=== PATIENT | female | born 1950 | race Caucasian/White ===

== ENCOUNTER 2016-12-16 08:32 | Inpatient (IN) | payer MEDICARE ==
[2016-12-15 11:04] VITALS: BMI 34.5
--- NOTE | 2016-12-16 10:34 | HP ---
Admitting History and Physical - Admission Chief Complaint: Pelvic prolapse History of Present Illness: 66 yo Para 3 with pelvic prolapse is Pre op for vaginal hysterectomy and anterior repair. History Source: Patient Limitations to Obtaining History: No Limitations - Past Medical History ...: No ...Para: 3 - Past Surgical History Past Surgical History: Yes: Appendectomy, Cholecystectomy Additional Past Surgical History: Knee surgery - Smoking History Smoking history: Former smoker Have you smoked in the past 12 months: No If you are a former smoker, when did you quit?: 1999 - Alcohol/Substance Use Hx Alcohol Use: No History of Substance Use: reports: None Home Medications - Allergies Allergies/Adverse Reactions: Allergies Allergy/AdvReac Type Severity Reaction Status Date / Time codeine AdvReac Severe Verified 12/16/16 09:21 morphine AdvReac Severe Vomiting Verified 12/16/16 09:21 - Home Medications Home Medications: Ambulatory Orders NK [No Known Home Medication] 12/15/16 Family Disease History - Family Disease History Family History: Unremarkable Review of Systems - Review of Systems Constitutional: reports: No Symptoms Eyes: reports: No Symptoms HENT: reports: No Symptoms Neck: reports: No Symptoms Cardiovascular: reports: No Symptoms Respiratory: reports: No Symptoms Gastrointestinal: reports: No Symptoms Genitourinary: reports: Other (Pelvic prolapse) Musculoskeletal: reports: No Symptoms Neurological: reports: No Symptoms Psychiatric: reports: No Symptoms Pain Intensity: 0 Physical Examination Vital Signs: Vital Signs Temperature 98.9 F 12/16/16 09:19 Pulse Rate 82 12/16/16 09:19 Respiratory Rate 20 12/16/16 09:19 Blood Pressure 124/73 12/16/16 09:19 O2 Sat by Pulse Oximetry (%) 97 12/16/16 09:14 Constitutional: Yes: Well Nourished Eyes: Yes: Conjunctiva Clear Neck: Yes: Supple Cardiovascular: Yes: Regular Rate and Rhythm Respiratory: Yes: Regular, CTA Bilaterally Gastrointestinal: Yes: Normal Bowel Sounds Neurological: Yes: Alert, Oriented ...Motor Strength: WNL Psychiatric: Yes: Alert, Oriented Problem List - Problems (1) Uterovaginal prolapse, complete Code(s): N81.3 - COMPLETE UTEROVAGINAL PROLAPSE (2) Cystocele Code(s): N81.10 - CYSTOCELE, UNSPECIFIED Assessment/Plan Uterovaginal prolapse Pre op for vaginal hysterectomy and anterior repair Consent signed Anesthesia to see patient
[2016-12-16] MEDS ORDERED: MIDAZOLAM HCL 2 MG/2 ML SINGLE DOSE VIAL ONE (10:37)
[2016-12-16] MEDS ORDERED: PROPOFOL 20 ML ONE ×3 (10:38)
[2016-12-16] MEDS ORDERED: LIDOCAINE HCL/PF 2% SDV 5ML VIAL ONE (10:39)
[2016-12-16] MEDS ORDERED: ceFAZolin SODIUM 1 GM VIAL ONE (10:39)
[2016-12-16] MEDS ORDERED: VECURONIUM BROMIDE 10 MG VIAL ONE (10:39)
[2016-12-16] MEDS ORDERED: DEXAMETHASONE SOD PHOSPHATE 4 MG/1 ML VIAL ONE (10:39)
[2016-12-16] MEDS ORDERED: SUCCINYLCHOLINE CHLORIDE 200 MG/10 ML VIAL ONE (10:40)
[2016-12-16] MEDS ORDERED: VASOPRESSIN 20 UNITS/ML VIAL IV ONE ×2 (11:00→11:07)
[2016-12-16] MEDS ORDERED: ISOSULFAN BLUE 10 MG/ML VIAL SQ ONE (11:01)
--- NOTE | 2016-12-16 11:02 | OP ---
Operative Note - Note: Operative Date: 12/16/16 Pre-Operative Diagnosis: Utrovaginal prolapse / Cystocele Operation: Total vaginal Hysterectomy / Anterior repair Post-Operative Diagnosis: Same as Pre-op Surgeon: Madyson Arce
[2016-12-16] MEDS ORDERED: ceFAZolin SODIUM 1 GM VIAL IVPB ONE (11:05)
[2016-12-16] MEDS ORDERED: NEOSTIGMINE METHYLSULFATE 0.5 MG/ML - 10 ML MDV ONE (11:36)
[2016-12-16] MEDS ORDERED: GLYCOPYRROLATE 0.2 MG/1 ML VIAL ONE (11:37)
[2016-12-16] MEDS ORDERED: metroNIDAZOLE 0.75% VAGINAL GEL 70 GM TUBE ONE (12:23)
[2016-12-16] MEDS ORDERED: ONDANSETRON 4 MG/2 ML VIAL IVPUSH PRN (13:07)
[2016-12-16] MEDS ORDERED: HYDROmorphone HCL CARPU-JECT 2 MG/1 ML DISP.SYRIN ONE (13:07)
[2016-12-16] MEDS: HYDROmorphone HCL CARPU-JECT 1 MG/1 ML DISP.SYRIN IVPUSH PRN ×6 (13:38→15:30)
[2016-12-16] MEDS: ACETAMINOPHEN 1000 MG/100 ML VIAL (NON FORMULARY) IVPB PRN ×2 (15:35→21:39)
[2016-12-16] MEDS: DEXTROSE 5%-LACTATED RINGERS 1,000 ML IV SCH (15:55)
[2016-12-16] MEDS: LACTATED RINGERS SOLUTION 1,000 ML IV SCH (17:21)
[2016-12-16] MEDS: CEFAZOLIN (PRE-DOCKED) 50 ML IVPB SCH (18:01)
--- NOTE | 2016-12-16 18:19 | OP ---
DATE OF OPERATION: 12/16/2016 PREOPERATIVE DIAGNOSIS: Uterovaginal prolapse and cystocele. POSTOPERATIVE DIAGNOSIS: Uterovaginal prolapse and cystocele. PROCEDURE: Total vaginal hysterectomy and sling. SURGEON: Madyson Arce M.D. COURT STENOGRAPHER: Ollie Jones M.D. ANESTHESIA: General. COMPLICATIONS: None. ESTIMATED BLOOD LOSS: 150 mL. PROCEDURE: Patient was taken to the operating room where general anesthesia was administered. Patient was then prepped and draped in proper sterile fashion. The patient was placed in dorsal lithotomy position, prepped and draped in proper sterile fashion. The weighted speculum was placed to the vagina. The cervix was grasped with 2 tooth tenacula. Cervix was then injected circumferentially with pitressin. The cervix was then circumferentially incised with the Bovie cautery, and the bladder dissected off the pubovesical cervical fascia. The same procedure was performed posteriorly, and the posterior cul-de-sac entered sharply without difficulty. At this point, the Jaziel a suture was placed over the posterior vagina wall, and a Jaziel clamp was placed over the uterosacral ligament on either side. These were then transected and suture ligated with 0 Vicryl. Hemostasis was assured. The cardinal ligaments were then clamped on both side, transected and suture ligated in similar fashion. The uterine arteries and the broad ligaments were then serially clamped with Jaziel clamp, transected, and suture ligated on both sides. Excellent hemostasis was visualized. Both cornua were clamped with Jaziel clamp, transected, and the uterus delivered. These pedicles were then suture ligated with excellent hemostasis. Then the peritoneum was closed with pursestring suture of 0 Vicryl. The vaginal cuff angles were closed with [id number] stitches of 0 Vicryl on both sides and transfixed to the ipsilateral cardinal and uterosacral ligaments. The remainder of the vaginal cuff was closed with [id number] stitches of 0 Vicryl in interrupted fashion. All instruments were removed from the vagina. Then the sling procedure started with the urologist, Dr. Jones. MADYSON ARCE M.D. [id number]
[2016-12-16] MEDS ORDERED: PT OWN MED DRAWER 7, Y5N ONE (22:09)
[2016-12-17] MEDS: DEXTROSE 5%-LACTATED RINGERS 1,000 ML IV SCH ×2 (01:10→16:19)
[2016-12-17] MEDS: CEFAZOLIN (PRE-DOCKED) 50 ML IVPB SCH ×2 (01:21→09:20)
--- NOTE | 2016-12-17 08:49 | OP ---
DATE OF OPERATION: 12/16/2016 PREOPERATIVE DIAGNOSIS: Stress urinary incontinence. POSTOPERATIVE DIAGNOSIS: Stress urinary incontinence. PROCEDURE: Suburethral sling placement and cystoscopy. Please note this procedure is done in conjunction with Dr. Arce after the patient had her vaginal hysterectomy. SURGEON: Ollie Bone MD SINGLE CORNER CUTTER: Madyson Arce MD ANESTHESIA: General. ESTIMATED BLOOD LOSS: 25 mL FINDINGS: Hypermobile urethra, sling placed, and bladder normal with bilateral efflux. DRAINS: A Choi catheter. PREOPERATIVE INDICATIONS: The patient is a 66-year-old female with uterine prolapse and stress incontinence. She comes to the OR. She is sent for suburethral sling in conjunction with a vaginal hysterectomy. OPERATION: The patient was brought to the OR, placed on the table in supine position. She underwent a vaginal hysterectomy. At the end of that case, once the uterus was removed, the bladder appeared well supported, and cystocele repair was not necessary. There was hypermobility of the urethra. The Choi catheter was in place, and the middle third of the urethra was injected with Pitressin for hydrodissection. The vaginal mucosa was incised. Along the middle third of the urethra, the vaginal mucosa was sharply dissected off the periurethral tissues in a lateral fashion. The bladder was emptied. An Altis mini-sling was placed. The trocar was passed under control through the right side, into the obturator canal. No button holing of the mucosa was seen. A similar was done on the left side as well. Cystoscopy was then performed. Bilateral efflux was seen from both UOs. The bladder itself otherwise appeared to be okay. No evidence of any perforation or bleeding. The sling was then laid over the urethra without tension. Excess suture was removed, and the vaginal mucosa was then closed using 2-0 Vicryl suture. The vagina was packed. Patient was woken up. OLLIE BONE M.D. [id number]
--- NOTE | 2016-12-17 09:45 | PN ---
Progress Note (short form) - Note Progress Note: Anesthesia postop note 66 y/o F s/p GA for vaginal hysterectomy and sling placement POD#1, vss, aaox3, pain well controlled, no complaints. No anesthesia complications.
--- NOTE | 2016-12-17 12:21 | PATH ---
Surgical Pathology Report Patient Name: MALIA ROJAS Med. Rec. #: [id number] /Age/Gender: 1950 (Age: 66) / F Account: [id number] Location: [facility] MED/SURG Taken: 12/16/2016 Received: 12/16/2016 Reported: 12/17/2016 Physicians: Madyson Arce M.D. Specimen(s) Received UTERUS AND CERVIX Clinical History Pelvic prolapse Final Diagnosis UTERUS AND CERVIX, HYSTERECTOMY: UTERUS AND CERVIX, 85 GRAMS, WITH 2 SMALL (LESS THAN 5 MM) LEIOMYOMAS, INACTIVE TO ATROPHIC ENDOMETRIUM, UTERINE SEROSAL FIBROVASCULAR ADHESIONS, AND CERVIX WITH CHRONIC INFLAMMATION AND BENIGN TUNNEL CLUSTER FORMATION. Electronically Signed Jose Holt M.D. Gross Description Received in formalin labeled "uterus and cervix," is an 85 g uterus with an attached cervix and no attached adnexa. The specimen measures 8.5 cm from superior to inferior, 4.8 cm from left to right and 3.6 cm from anterior to posterior. The serosa is pink-sevilla and smooth. The attached cervix measures 2.5 cm in length and averages 2.5 cm in diameter. The ectocervix is pink-sevilla, smooth and glistening. The endocervix is unremarkable. The endometrial cavity measures 3.5 cm in length and 2.7 cm from cornu to cornu. The endometrium is sevilla-red and averages 0.1 cm in thickness. The myometrium is sevilla-pink and average as 1.7 cm in thickness. There are no intramural nodules identified. Field Ring Assembler sections are submitted in 6 cassettes as follows: 1-anterior cervix; 2-posterior cervix; 2-2-zayajexu endomyometrium; 5-0-nsxvfxelp endomyometrium. /12/16/2016 saudi/12/16/2016
--- NOTE | 2016-12-17 12:54 | PN ---
Progress Note, Physician Chief Complaint: Post op History of Present Illness: 66 yo with h/o pelvic prolapse, is status post vaginal hysterectomy and sling procedure. Patient seen and evaluated, doing well. - Current Medication List Current Medications: Active Medications Cefazolin Sodium (Ancef 1gm Ivpb (Pre-Docked)) 50 mls @ 100 mls/hr IVPB Q8H-IV GUSTAVO Stop: 12/17/16 17:59 Last Admin: 12/17/16 09:20 Dose: 100 mls/hr Lactated Ringer's (Lactated Ringers Solution) 1,000 mls @ 125 mls/hr IV ASDIR GUSTAVO Last Admin: 12/16/16 17:21 Dose: Not Given Dextrose/Lactated Ringer's (D5-Lr -) 1,000 mls @ 125 mls/hr IV ASDIR GUSTAVO Last Admin: 12/17/16 01:10 Dose: 125 mls/hr - Objective Vital Signs: Vital Signs Temperature 98.4 F 12/17/16 08:53 Pulse Rate 70 12/17/16 08:53 Respiratory Rate 18 12/17/16 08:53 Blood Pressure 144/71 12/17/16 08:53 O2 Sat by Pulse Oximetry (%) 98 12/16/16 15:45 Constitutional: Yes: Well Nourished Eyes: Yes: Conjunctiva Clear HENT: Yes: Atraumatic Neck: Yes: Supple, Trachea Midline Cardiovascular: Yes: Regular Rate and Rhythm Respiratory: Yes: Regular, CTA Bilaterally Gastrointestinal: Yes: Normal Bowel Sounds Genitourinary: Yes: Other (Healing wound) Wound/Incision: Yes: Other (Vaginal packing removed / No bleeding) Neurological: Yes: Alert, Oriented ...Motor Strength: WNL Psychiatric: Yes: Alert, Oriented Problem List - Problems (1) Uterovaginal prolapse, complete Code(s): N81.3 - COMPLETE UTEROVAGINAL PROLAPSE (2) Cystocele Code(s): N81.10 - CYSTOCELE, UNSPECIFIED (4) History of suburethral sling procedure Code(s): Z98.890 - OTHER SPECIFIED POSTPROCEDURAL STATES Assessment/Plan Status post vaginal hysterectomy / suburethral sling procedure D/C Choi catheter D/C vaginal packing D/C IVF Regular diet D/C Home this PM
--- NOTE | 2016-12-17 13:06 | DS ---
Physical Examination Vital Signs: Vital Signs Temperature 98.4 F 12/17/16 08:53 Pulse Rate 70 12/17/16 08:53 Respiratory Rate 18 12/17/16 08:53 Blood Pressure 144/71 12/17/16 08:53 O2 Sat by Pulse Oximetry (%) 98 12/16/16 15:45 Constitutional: Yes: Well Nourished Eyes: Yes: Conjunctiva Clear HENT: Yes: Atraumatic, Normocephalic Neck: Yes: Supple, Trachea Midline Cardiovascular: Yes: Regular Rate and Rhythm Respiratory: Yes: Regular, CTA Bilaterally Gastrointestinal: Yes: Normal Bowel Sounds Musculoskeletal: Yes: WNL Extremities: Yes: WNL Wound/Incision: Yes: Other (Healing wound) Neurological: Yes: Alert, Oriented ...Motor Strength: WNL Psychiatric: Yes: Alert, Oriented Discharge Summary Reason For Visit: PELVIC PROLAPSE Current Active Problems Cystocele (Acute) History of suburethral sling procedure (Acute) Status post vaginal hysterectomy (Acute) Uterovaginal prolapse, complete (Acute) Procedures: Principal: Total vaginal hysterectomy Other Procedures: Suburethral sling procedure Hospital Course: Routine post op care Additional dosage of antibiotic given No blood transfusion required Condition: Good - Instructions Diet, Activity, Other Instructions: Regular diet No lifting, no sexual intercourse x 4 weeks Referrals: Madyson Arce MD [Staff Physician] - Disposition: HOME - Home Medications Comprehensive Discharge Medication List: Ambulatory Orders NK [No Known Home Medication] 12/15/16
[2016-12-17] MEDS: LACTATED RINGERS SOLUTION 1,000 ML IV SCH (16:19)
[2016-12-17 17:21] VITALS: BP 162/83; PULSE 83; TEMP 99.2
== END 2016-12-17 19:19 | disposition home or self-care (01) | DRG 743 ==
LOC: JASUSAT 08:32 → J8W 16:29 → JASUSAT 16:30 → J8W 16:30
PROVIDERS: ADMIT Obstetrics & Gynecology; ATTEND Obstetrics & Gynecology
PROC: 0TSD4ZZ Reposition Urethra, Percutaneous Endoscopic Approach (ICD-10-PCS; 2016-12-16)
PROC: 0TJB8ZZ Inspection of Bladder, Via Natural or Artificial Opening Endoscopic (ICD-10-PCS; 2016-12-16)
PROC: 0UT97ZZ Resection of Uterus, Via Natural or Artificial Opening (ICD-10-PCS; principal; 2016-12-16 11:00)
PROC: 0UTC7ZZ Resection of Cervix, Via Natural or Artificial Opening (ICD-10-PCS; 2016-12-16 11:00)
DX: N81.3 Complete uterovaginal prolapse (principal); N39.3 Stress incontinence (female) (male); N36.41 Hypermobility of urethra; N32.81 Overactive bladder; E66.8 Other obesity; Z68.34 Body mass index [BMI] 34.0-34.9, adult
CPT/HCPCS: 86850; 86900; 86901; 88307-TC; 94010; 94760

== ENCOUNTER 2024-08-28 16:57 | Emergency (ER) | payer OTHER ==
[2024-08-28 17:51] VITALS: RESP 18; TEMP 99.7; BMI 32.9
[2024-08-28] MEDS ORDERED: ACETAMINOPHEN INJECTION 100 ML ONE (18:56)
[2024-08-28] MEDS: ACETAMINOPHEN 1000 MG/100 ML BAG IVPB ONE (18:59)
[2024-08-28 19:15] LABS: INR 1.07 (0.83-1.09); PROTHROMBIN TIME (PATIENT) 11.7 SEC (9.7-13.0)
[2024-08-28 19:28] LABS: POTASSIUM 4.5 mmol/L (3.5-5.1)
[2024-08-28 19:30] LABS: CALCIUM 9.3 mg/dL (8.5-10.1)
[2024-08-28 19:31] LABS: ALBUMIN 3.8 g/dl (3.4-5.0); BLOOD UREA NITROGEN 18.6 mg/dL (7-18)
[2024-08-28 19:34] LABS: CREATININE 0.5 mg/dL (0.55-1.3)
[2024-08-28 19:37] LABS: BILIRUBIN,TOTAL 1.2 mg/dL (0.2-1); TOT PROT 6.9 g/dl (6.4-8.2)
[2024-08-28] MEDS ORDERED: FAMOTIDINE 20 MG/50 ML IVPB 20 MG/50 ML MG IVPB ONE (20:07)
[2024-08-28 20:16] LABS: BASO % 0.7 % (0-2.0); EOS % 4.1 % (0-4.5); HEMATOCRIT 41.1 % (32.4-45.2); HEMOGLOBIN 14.1 GM/dL (10.7-15.3); LYMPH % 17.7 % (8-40); MCH 29.4 pg (25.7-33.7); MCHC 34.3 g/dl (32.0-36.0); MEAN CELL VOLUME 85.7 fl (80-96); MEAN PLT VOLUME 7.5 fl (7.5-11.1); MONO % 10.7 % (3.8-10.2); NEUT % 66.8 % (42.8-82.8); PLATELET COUNT 262 10^3/uL (134-434); RDW 12.5 % (11.6-15.6); WHITE BLOOD COUNT 9.5 K/mm3 (4.0-10.0)
[2024-08-28 20:22] VITALS: BP 171/80; PULSE 94
[2024-08-28] MEDS ORDERED: GABAPENTIN 300 MG CAPSULE ONE (20:33)
[2024-08-28] MEDS: FAMOTIDINE 20 MG/50 ML IVPB 20 MG/50 ML MG IVPB ONE (20:34)
[2024-08-28] MEDS: GABAPENTIN 300 MG CAPSULE PO ONE (20:34)
[2024-08-28 20:42] LABS: POTASSIUM 3.6 mmol/L (3.5-5.1)
[2024-08-28 20:44] LABS: CALCIUM 8.9 mg/dL (8.5-10.1)
[2024-08-28 20:45] LABS: BLOOD UREA NITROGEN 20.1 mg/dL (7-18); MAGNESIUM 1.9 mg/dL (1.8-2.4)
[2024-08-28 20:48] LABS: CREATININE 0.5 mg/dL (0.55-1.3)
[2024-08-28] MEDS ORDERED: ACETAMINOPHEN 325 MG TABLET (FP) ONE (23:47)
[2024-08-29] MEDS: ACETAMINOPHEN 500 MG TABLET (FP) PO ONE (00:03)
== END 2024-08-29 00:03 | disposition home or self-care (01) ==
LOC: JER 16:57
PROC: 3E033GC Introduction of Other Therapeutic Substance into Peripheral Vein, Percutaneous Approach (ICD-10-PCS; principal; 2024-08-28)
PROC: 3E033NZ Introduction of Analgesics, Hypnotics, Sedatives into Peripheral Vein, Percutaneous Approach (ICD-10-PCS; 2024-08-28)
DX: K92.0 Hematemesis (principal); M54.50 Low back pain, unspecified; G89.29 Other chronic pain; R10.13 Epigastric pain
CPT/HCPCS: 36415; 80048; 80053; 83735; 85025; 85610; 85730; 86850; 86900; 86901; 93005; 93010; 96365; 96375; 99284-25; J0131

== ENCOUNTER 2024-10-09 14:09 | Emergency (ER) | payer OTHER ==
[2024-10-09] MEDS ORDERED: ACETAMINOPHEN INJECTION 100 ML ONE (15:54)
[2024-10-09] MEDS: ACETAMINOPHEN 1000 MG/100 ML BAG IVPB ONE (15:57)
[2024-10-09 16:13] LABS: ABSOLUTE IMMATURE GRANULOCYTES 0.04 x10^3/uL (0.0-0.031); BASOPHILS # 0.04 x10^3/uL (0.01-0.08); EOSINOPHIL % 2.4 % (0.7-5.8); EOSINOPHILS # 0.23 x10^3/uL (0.04-0.36); HEMATOCRIT 42.8 % (34.1-44.9); HEMOGLOBIN 13.9 g/dL (11.2-15.7); MCHC 32.5 g/dl (32.2-35.5); MEAN CELL VOLUME 87.2 fl (79.4-94.8); MEAN PLT VOLUME 9.6 fl (9.4-12.3); MONOCYTE # 0.97 x10^3/uL (0.24-0.86); PLATELET COUNT 273 x10^3/uL (182-369); RDW 12.8 % (12.4-16.6)
[2024-10-09 16:20] LABS: INR 1.28 (0.83-1.09); PROTHROMBIN TIME (PATIENT) 13.9 SEC (9.7-13.0)
[2024-10-09 16:23] VITALS: BP 137/75; PULSE 89; RESP 20; TEMP 97.8; BMI 32.5
[2024-10-09 16:43] LABS: POTASSIUM 3.8 mmol/L (3.5-5.1)
[2024-10-09 16:45] LABS: CALCIUM 9.5 mg/dL (8.5-10.1)
[2024-10-09 16:46] LABS: ALBUMIN 3.6 g/dl (3.4-5.0); BLOOD UREA NITROGEN 16.4 mg/dL (7-18); MAGNESIUM 2.3 mg/dL (1.8-2.4)
[2024-10-09 16:50] LABS: BILIRUBIN,TOTAL 1.3 mg/dL (0.2-1)
[2024-10-09 16:51] LABS: TOT PROT 6.3 g/dl (6.4-8.2)
[2024-10-09 16:54] LABS: CREATININE 0.5 mg/dL (0.55-1.3)
[2024-10-09 17:35] LABS: HCV DIAGNOSTIC IN-HOUSE W/RFLX NON-REACTIVE (NONREACTIVE)
[2024-10-09 17:36] LABS: HIV INTERPRETATION NEGATIVE (NEGATIVE)
[2024-10-09] MEDS ORDERED: KETOROLAC TROMETHAMINE 15 MG/ML VIAL ONE (18:37)
[2024-10-09] MEDS: KETOROLAC TROMETHAMINE 15 MG/ML VIAL IVPUSH ONE (18:41)
== END 2024-10-09 22:26 | disposition home or self-care (01) ==
LOC: JER 14:09
PROC: 3E033NZ Introduction of Analgesics, Hypnotics, Sedatives into Peripheral Vein, Percutaneous Approach (ICD-10-PCS; principal; 2024-10-09)
PROC: 3E0333Z Introduction of Anti-inflammatory into Peripheral Vein, Percutaneous Approach (ICD-10-PCS; 2024-10-09)
DX: M54.50 Low back pain, unspecified (principal); G89.29 Other chronic pain; M79.605 Pain in left leg; R94.31 Abnormal electrocardiogram [ECG] [EKG]
CPT/HCPCS: 36415; 70450-TC; 72125-TC; 72131-TC; 80053; 83735; 84484; 85025; 85610; 85730; 86803; 87389; 93005; 93010; 99285-25; J0131